=== PATIENT | female | born 1980 | race Caucasian/White ===

== ENCOUNTER 2024-02-14 22:01 | Emergency (ER) | payer BC ==
[2024-02-14 22:06] VITALS: TEMP 97.9
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
[2024-02-14 22:09] LABS: Glucose,Whole Blood 129 mg/dL (70-110)
[2024-02-14 22:20] LABS: Basophils # (A) 0.1 k/uL (0-0.2); Basophils % (A) 1 %; Eosinophils # (A) 0.2 k/uL (0-0.7); Eosinophils % (A) 2 %; HGB 13.1 gm/dL (11.4-16.0); Lymphocytes % (A) 45 %; MCH 32.3 pg (25.0-35.0); MCHC 34.4 g/dL (31.0-37.0); Mean Platelet Volume 8.3; Monocytes # (A) 0.5 k/uL (0-1.0); Monocytes % (A) 5 %; Neutrophils % (A) 46 %; Platelet Count 283 k/uL (150-450); RBC 4.04 m/uL (3.80-5.40); RDW 12.3 % (11.5-15.5)
--- NOTE | 2024-02-14 22:34 | XR ---
EXAM: XR Chest, 1 View CLINICAL HISTORY: Trauma TECHNIQUE: Frontal view of the chest. COMPARISON: No relevant prior studies available. FINDINGS: Lungs: No definite pulmonary contusive injury or focal consolidation. Pleural space: No definite pleural effusion or pneumothorax, accounting for limitations with supine technique. Heart: Unremarkable. No cardiomegaly. Mediastinum: No evidence for mediastinal widening. No tracheal deviation. Bones/joints: No definite acute osseous traumatic injury. IMPRESSION: No radiographic evidence for significant acute traumatic injury involving the chest/thorax.
--- NOTE | 2024-02-14 22:34 | XR ---
EXAM: XR Pelvis, 1 or 2 Views CLINICAL HISTORY: Trauma TECHNIQUE: Frontal view of the pelvis. COMPARISON: No relevant prior studies available. FINDINGS: Bones/joints: Unremarkable. No acute fracture. No dislocation. Soft tissues: Unremarkable. IMPRESSION: Negative radiographic evaluation of the pelvis.
[2024-02-14 22:36] LABS: ALT 31 U/L (4-34); AST 40 U/L (14-36); African American GFR (CKD) >90 (>60 ml/min/1.73 sqM); Albumin 4.1 g/dL (3.5-5.0); Alcohol 76 mg/dL; Alkaline Phosphatase 92 U/L (38-126); Anion Gap 10 mmol/L; Blood Urea Nitrogen 13 mg/dL (7-17); Calcium 8.8 mg/dL (8.4-10.2); Carbon Dioxide 20 mmol/L (22-30); Chloride 112 mmol/L (98-107); Glucose 117 mg/dL (74-99); Non-African American GFR(CKD) >90 (>60 ml/min/1.73 sqM); Sodium 142 mmol/L (137-145); Total Bilirubin 0.4 mg/dL (0.2-1.3); Total Protein 6.6 g/dL (6.3-8.2)
[2024-02-14] MEDS: HYDROmorphone 1 MG/ML 1 ML SYRINGE IVP STA (23:00)
--- NOTE | 2024-02-14 23:00 | CT ---
EXAM: CT Head Without Intravenous Contrast CLINICAL HISTORY: Trauma TECHNIQUE: Axial computed tomography images of the head/brain without intravenous contrast. CTDI is 45.2 mGy and DLP is 1156 mGy-cm. This CT exam was performed using one or more of the following dose reduction techniques: automated exposure control, adjustment of the mA and/or kV according to patient size, and/or use of iterative reconstruction technique. COMPARISON: No relevant prior studies available. FINDINGS: Brain: Unremarkable. No hemorrhage. No significant white matter disease. No edema. Ventricles: Unremarkable. No ventriculomegaly. Bones/joints: Unremarkable. No acute fracture. Soft tissues: No significant overlying acute traumatic soft tissue abnormality. No radiopaque foreign body. Sinuses: Unremarkable as visualized. No acute sinusitis. Mastoid air cells: Unremarkable as visualized. No mastoid effusion. IMPRESSION: No acute intracranial process identified. EXAM: CT Cervical Spine Without Intravenous Contrast CLINICAL HISTORY: Trauma TECHNIQUE: Axial computed tomography images of the cervical spine without intravenous contrast. CTDI is 13.1 mGy and DLP is 344.4 mGy-cm. This CT exam was performed using one or more of the following dose reduction techniques: automated exposure control, adjustment of the mA and/or kV according to patient size, and/or use of iterative reconstruction technique. COMPARISON: No relevant prior studies available. FINDINGS: Vertebrae: The vertebral bodies are intact without acute osseous traumatic injury. No anterolisthesis or retrolisthesis is identified. The facet joints are well aligned without subluxation or dislocation. The pedicles, transverse processes and spinous processes are intact. Discs/spinal canal/neural foramina: No acute findings. No osseous spinal canal stenosis. Soft tissues: Unremarkable. Lung apices: The included lung apices demonstrate no evidence for acute traumatic injury. IMPRESSION: No acute osseous traumatic injury or significant abnormal alignment involving the cervical spine.
--- NOTE | 2024-02-14 23:08 | CT ---
EXAM: CT Chest With Intravenous Contrast CLINICAL HISTORY: Trauma TECHNIQUE: Axial computed tomography images of the chest with intravenous contrast. CTDI is 12.8 mGy and DLP is 924.6 mGy-cm. This CT exam was performed using one or more of the following dose reduction techniques: automated exposure control, adjustment of the mA and/or kV according to patient size, and/or use of iterative reconstruction technique. COMPARISON: No relevant prior studies available. FINDINGS: Lungs: No definite pulmonary contusive injury or focal consolidation identified. No mass. Pleural space: Unremarkable. No pneumothorax. No significant effusion. Heart: The cardiac chambers are normal in size. No pericardial effusion. No significant coronary artery calcifications. Mediastinum: No mediastinal traumatic injury. Bones/joints: The osseous structures of the thorax are intact without acute osseous traumatic injury. No dislocation. Soft tissues: No significant overlying acute traumatic soft tissue abnormality. The implants are symmetric in appearance. No obvious manic injury. Vasculature: The thoracic aorta is normal in caliber without evidence for acute periaortic traumatic injury. No dissection or aneurysm. Lymph nodes: Unremarkable. No enlarged lymph nodes. IMPRESSION: No significant acute traumatic injury identified involving the chest/thorax. EXAM: CT Abdomen and Pelvis With Intravenous Contrast CLINICAL HISTORY: Trauma TECHNIQUE: Axial computed tomography images of the abdomen and pelvis with intravenous contrast. CTDI is 26.8 mGy and DLP is 1650 mGy-cm. This CT exam was performed using one or more of the following dose reduction techniques: automated exposure control, adjustment of the mA and/or kV according to patient size, and/or use of iterative reconstruction technique. COMPARISON: No relevant prior studies available. FINDINGS: Lung bases: For findings regarding the lung bases, please see the CT report of the chest performed concurrently. No consolidation. ABDOMEN: Liver: The liver is intact without evidence for acute traumatic injury. Hepatic steatosis. Gallbladder and bile ducts: Unremarkable. No calcified stones. No ductal dilation. Pancreas: Unremarkable. No mass. No ductal dilation. Spleen: The spleen is intact without evidence for acute traumatic injury. Adrenals: Unremarkable. No mass. Kidneys and ureters: The kidneys appear intact without evidence for acute traumatic injury. Delayed phase imaging demonstrates normal excreted contrast in the renal collecting systems and ureters without evidence for traumatic injury. No hydronephrosis. Stomach and bowel: No evidence for acute traumatic bowel injury. No bowel obstruction. Mild mucosal prominence of the ascending colon is presumed related to under distention. PELVIS: Appendix: No findings to suggest acute appendicitis. Bladder: The bladder is mild to moderately distended. No evidence for traumatic injury. Delayed phase imaging demonstrates normal excreted contrast in the bladder without leakage. Reproductive: Unremarkable as visualized. ABDOMEN and PELVIS: Intraperitoneal space: Unremarkable. No free air. No significant fluid collection. Retroperitoneal space: No evidence for retroperitoneal hematoma. Bones/joints: The lumbar spine, pelvic bones and proximal femurs are intact. No acute fracture. No dislocation. Soft tissues: No significant overlying acute traumatic soft tissue abnormality identified. Vasculature: The aorta is normal in caliber without evidence for traumatic injury. No abdominal aortic aneurysm. Lymph nodes: Unremarkable. No enlarged lymph nodes. IMPRESSION: No significant acute traumatic injury involving the abdomen or pelvis.
--- NOTE | 2024-02-14 23:10 | CT ---
EXAM: CT Maxillofacial Without Intravenous Contrast CLINICAL HISTORY: trauma TECHNIQUE: Axial computed tomography images of the face without intravenous contrast. CTDI is 48.3 mGy and DLP is 1520.9 mGy-cm. This CT exam was performed using one or more of the following dose reduction techniques: automated exposure control, adjustment of the mA and/or kV according to patient size, and/or use of iterative reconstruction technique. COMPARISON: No relevant prior studies available. FINDINGS: Bones/joints: The maxillofacial bones are intact. The nasal bones are maintained. The mandible is intact and is well aligned. No acute fracture. Soft tissues: No significant overlying acute traumatic soft tissue abnormality identified. Orbits: Unremarkable. Sinuses: Unremarkable. No air-fluid levels. IMPRESSION: No significant acute traumatic maxillofacial injury identified.
[2024-02-14 23:30] LABS: INR 0.9 (<1.2); Prothrombin Time 10.2 sec (10.0-12.5)
[2024-02-14 23:56] LABS: Partial Thromboplastin Time 19.2 sec (22.0-30.0)
[2024-02-14] MEDS: IBUPROFEN 600 MG STARTER PACK 4 TAB BTL PO STA (23:59)
[2024-02-14] MEDS: ACET/COD 300 MG/30 MG STARTER PACK 6 TAB BTL PO STA (23:59)
--- NOTE | 2024-02-15 00:41 | XR ---
EXAM: XR Right Wrist Complete, 3 or More Views CLINICAL HISTORY: Pain TECHNIQUE: Frontal, lateral and oblique views of the right wrist. COMPARISON: No relevant prior studies available. FINDINGS: Bones/joints: Unremarkable. No acute fracture. No dislocation. Soft tissues: No significant overlying soft tissue abnormality. No radiopaque foreign body. IMPRESSION: No acute findings in the right wrist.
[2024-02-15 01:49] VITALS: BP 120/58; PULSE 96; RESP 18
== END 2024-02-15 01:40 | disposition home or self-care (01) ==
LOC: EC 22:01
DX: S60.212A Contusion of left wrist, initial encounter (principal); S20.219A Contusion of unspecified front wall of thorax, initial encounter; S20.229A Contusion of unspecified back wall of thorax, initial encounter; S30.811A Abrasion of abdominal wall, initial encounter; S99.912A Unspecified injury of left ankle, initial encounter; S99.911A Unspecified injury of right ankle, initial encounter; F17.290 Nicotine dependence, other tobacco product, uncomplicated; Z88.1 Allergy status to other antibiotic agents; Z88.5 Allergy status to narcotic agent; Z91.013 Allergy to seafood; V20.59XA Other motorcycle passenger injured in collision with pedestrian or animal in traffic accident, initial encounter; Y92.410 Unspecified street and highway as the place of occurrence of the external cause
CPT/HCPCS: 36415; 93005; 86900; 86901; 80053; 83605; 84484; 85025; 85610; 85730; 86850; 80320; 72170; 73110; 71045; 72125; 70486; 70450; 71260; 74177; 99285; 96374; G0390; J1170; Q9967

== ENCOUNTER 2024-02-15 11:44 | Emergency (ER) | payer BC ==
[2024-02-15 11:50] VITALS: RESP 18
[2024-02-15] MEDS: KETOROLAC 15 MG/ML 1 ML VIAL IM STA (12:50)
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
[2024-02-15] MEDS: ACET/COD 300 MG/30 MG STARTER PACK 6 TAB BTL PO STA (14:15)
[2024-02-15 14:37] VITALS: BP 110/73; PULSE 73; TEMP 98.4
== END 2024-02-15 14:37 | disposition home or self-care (01) ==
LOC: EC 11:44
DX: S90.511A Abrasion, right ankle, initial encounter (principal); S00.81XA Abrasion of other part of head, initial encounter; F17.290 Nicotine dependence, other tobacco product, uncomplicated; Z88.1 Allergy status to other antibiotic agents; Z88.8 Allergy status to other drugs, medicaments and biological substances; Z88.5 Allergy status to narcotic agent; V20.99XA Unspecified rider of other motorcycle injured in collision with pedestrian or animal in traffic accident, initial encounter; Y92.410 Unspecified street and highway as the place of occurrence of the external cause; Y93.55 Activity, bike riding
CPT/HCPCS: 73610; 73630; 29515; 99283; 96372; J1885